=== PATIENT | male | born 1970 | race Caucasian/White ===

== ENCOUNTER 2018-08-01 16:46 | Emergency (ER) | payer MEDICAID ==
[2018-08-01] MEDS: TETRACAINE 0.5% 4 ML OPH LEFT EYE (20:09)
[2018-08-01] MEDS: FLUORESCEIN STRIP LEFT EYE (20:09)
== END 2018-08-01 21:37 | disposition home or self-care (01) ==
LOC: FTE 16:46
DX: S05.92XA Unspecified injury of left eye and orbit, initial encounter (principal); F17.210 Nicotine dependence, cigarettes, uncomplicated; X58.XXXA Exposure to other specified factors, initial encounter; Y92.9 Unspecified place or not applicable
CPT/HCPCS: 70480; 99284-25